=== PATIENT | male | born 1945 | race African-American/Black ===

== ENCOUNTER → 2016-11-29 | Outpatient (CLI) | payer MEDICARE, OTHER ==
[2015-09-12 07:59] VITALS: BP 139/80
[~2016-11-29] MED LIST: DOCU-27 PO; FLUT16SP NS; FLUT1DIS3 IH; FURO20TA3 PO; LIPA1CAP2 PO; LOSA1TAB17 PO; MEGE40TA PO; OMEP40CA5 PO; OXYC30TA PO; OXYC30TA64 PO; PROAIR HFA8.5 GM INH; RANI150T2 PO; TRAM50TA PO
--- NOTE | 2016-11-29 15:34 | KCIC ---
PROCEDURE Two view chest radiograph. HISTORY Short of air. Smoker, cough. TECHNIQUE Two-view chest radiograph was obtained. COMPARISON August 07, 2015. FINDINGS The lungs are clear. There is no pleural effusion. The heart is not enlarged and there is no heart failure. Calcified right paratracheal lymph node is stable. Bony structures are intact. IMPRESSION No acute thoracic findings. Electronically signed by: Adolfo Pleitez MD (Nov 29, 2016 15:33:10)
--- NOTE | 2016-11-29 15:36 | KCIC ---
PROCEDURE CT head without contrast HISTORY Headaches for 2-[address] imaging was performed of the head. Exposure: One or more of the following individualized dose reduction techniques were utilized for this exam: 1. Automated exposure control. 2. Adjustment of the mA and/or kV according to patient size. 3. Use of iterative reconstruction technique. COMPARISON April 22, 2014 FINDINGS There is no intra-axial mass effect, midline shift, extra-axial fluid collection. No acute intracranial hemorrhage is identified. Alegria-white differentiation of the major vascular territories is preserved. Ventricular size is stable, within normal limits given mild generalized supratentorial involutional change. No acute calvarial abnormality is identified. Mastoid air cells are aerated. There is again some pneumatization of the petrous apices bilaterally. Paranasal sinuses are mostly aerated, mucous retention cyst of the lateral left maxillary sinus 1.1 centimeter. IMPRESSION No acute intracranial abnormality is identified. Electronically signed by: Hany Parker MD (Nov 29, 2016 15:34:16)
== END | disposition home or self-care (01) ==
LOC: KCIC CT 14:19
PROVIDERS: ATTEND Internal Medicine
DX: R06.02 Shortness of breath (principal); R05 Cough; F17.200 Nicotine dependence, unspecified, uncomplicated; R51 Headache
CPT/HCPCS: 70450; 71020

== ENCOUNTER → 2018-07-07 | Day surgery (SDC) | payer OTHER ==
[~2018-07-07] MED LIST changes: +CLOP75TA PO; +DOCU-109 PO; -DOCU-27 PO; +HYDROmorphone 2 MG/ML VIAL IV PRN; +IV RINGERS,LACTATED 1000ML 1,000 ML IV SCH; +LIDOCAINE 1% PF 2 ML VIAL. ID PRN; -LOSA1TAB17 PO; +LOSA1TAB22 PO; +MORPHINE SULFATE 2 MG/ML VIAL. IV PRN; +ONDANSETRON PF 4 MG/2 ML VIAL. IV PRN; +OXYC10TA57 PO; +PENI500T PO; +PROCHLORPERAZINE 10 MG/2 ML VIAL. IV PRN; +PROPOFOL 40 ML IV ONE; +fentaNYL PF VIAL 100 MCG/2 ML VIAL IV PRN
--- NOTE | 2018-07-07 09:45 | PDOC1 ---
HISTORY & PHYSICAL H&P Shilpi Rascon Jr 1945 06/10/2018 10:10 AM 09/29 [place] [facility] PATIENTS COM[facility] FIRST [address] [place] [address]. [phone] Patient: Shilpi Rascon Jr Date of : 1945 Date: 06/10/2018 10:10 AM Visit Type: Consult This 72 year old male presents for H/o colorectal polyp. History of Present Illness: 1. H/o colorectal polyp Prior screening: colonoscopy. Risk Factors: h/o colon polyp. Pertinent negatives include abdominal pain, change in bowel habits, change in stool caliber, constipation, decreased appetite, diarrhea, melena, nausea, rectal bleeding, vomiting, weight gain and weight loss. Additional information: No family history of colon cancer, No family history of Crohn's/colitis, No NSAID/ ASA use and last colonoscopy 3 yrs ago and had adenomatous polyp removed. INTAKE COMMENTS: Intake Comments: patient states he is here for a colonoscopy PROBLEM LIST: Problem Description Onset Date Chronic Clinical Status Notes Eczema 01/30/2015 COPD (chronic obstructive pulmonary disease) 01/30/2015 HTN (hypertension) 01/30/2015 Back pain 01/30/2015 Trochanteric bursitis of right hip 02/21/2016 PAST MEDICAL/SURGICAL HISTORY (Detailed) Disease/disorder Onset Date Management Date Comments Laminectomy 2009 COPD Degenerative Disc Disease eczema medications Hypertension Osteoarthritis Family History (Detailed) Relationship Family Member Name Age at Condition Onset Age Cause of Family history of Eczema N Family history of Hypertension N Family history of Coronary artery disease N Mother Hypertension N Social History: (Detailed) The patient is right-handed. Preferred language is Cameroonian. 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 MARITAL STATUS/FAMILY/SOCIAL SUPPORT Currently single. Tobacco use status: Occasional cigarette smoker. Smoking status: Unknown if ever smoked. TOBACCO/VAPING EXPOSURE There is passive smoke exposure. ALCOHOL There is a history of alcohol use. Type: Beer and wine. 3 beers consumed 2 to 3 times a week. Last alcoholic drink was yesterday. CAFFEINE The patient uses caffeine: coffee - 4 cups a day. HOME ENVIRONMENT/SAFETY The home has smoke detectors. No carbon monoxide detector at home. Uses seat belts. EXPERIENCE Patient has no experience. Medications (active prior to today) Medication Name Sig Description Start Date Stop Date Refilled Rx Elsewhere Maxalt 10 mg tablet take 1 tablet by oral route once, may repeat at 2 hour intervals; do not exceed 30 mg in 24 hours 11/15/2016 N Centrum Silver 0.4 mg-300 mcg-250 mcg tablet 1 po q daily 12/23/2016 N oxycodone 10 mg tablet take 1 tablet by oral route every 6 hours PRN for pain not controlled by tramadol 09/19/2017 06/10/2018 09/19/2017 N tramadol 50 mg tablet take 2 tablet by oral route every 6 hours as needed 09/1906/10/2018 09/19/2017 N MEGESTROL 40 MG TABLET TAKE [2] TABLETS EVERY DAY 01/08/2018 01/08/2018 N CLOBETASOL PROP 0.05% CR APPLY TO AFFECTED AREAS TWICE A DAY. 02/19/20182017 N PLAVIX 75 MG TABLET TAKE [1] TABLET BY MOUTH ONCE DAILY 03/03/2018 06/10/2018 N LIPITOR 10 MG TABLET TAKE [1] TABLET BY MOUTH ONCE DAILY 03/04/2018 06/10/2018 06/10/2018 N Viagra 100 mg tablet take 1 tablet by oral route every day as needed approximately 1 hour before sexual activity 03/10/2018 N LOSARTAN-HCTZ 100-25 MG TAB TAKE ONE TABLET BY MOUTH EVERY DAY 04/03/2018201706/10/2018 N triamcinolone acetonide 0.1 % topical cream apply by topical route 2 times every day a thin layer to the affected area(s) 05/28/2018 05/28/2018 N fluticasone 50 mcg/actuation nasal spray,suspension spray 1 spray by intranasal route 2 times every day in each nostril 05/28/2018 05/28/2018 N omeprazole 40 mg capsule,delayed release TAKE ONE CAPSULE BY MOUTH EVERY DAY 06/10/2018 06/10/2018 N ProAir HFA 90 mcg/actuation aerosol inhaler inhale 2 puff by inhalation route every 4 hours as needed 05/28/2018 05/28/2018 N Advair Diskus 250 mcg-50 mcg/dose powder for inhalation INHALE 1 PUFF TWICE A DAY. RINSE MOUTH AFTER USE. 05/28/2018 05/28/2018 N Medication Reconciliation Medications reconciled today. Medication Reviewed Adherence Medication Name Sig Desc Elsewhere Status taking as directed Maxalt 10 mg tablet take 1 tablet by oral route once, may repeat at 2 hour intervals; do not exceed 30 mg in 24 hours N Verified taking as directed Centrum Silver 0.4 mg-300 mcg-250 mcg tablet 1 po q daily N Verified taking as directed oxycodone 10 mg tablet take 1 tablet by oral route every 6 hours PRN for pain not controlled by tramadol N Verified taking as directed tramadol 50 mg tablet take 2 tablet by oral route every 6 hours as needed N Verified taking as directed MEGESTROL 40 MG TABLET TAKE [2] TABLETS EVERY DAY N Verified taking as directed CLOBETASOL PROP 0.05% CR APPLY TO AFFECTED AREAS TWICE A DAY. N Verified taking as directed LIPITOR 10 MG TABLET TAKE [1] TABLET BY MOUTH ONCE DAILY N Verified taking as directed PLAVIX 75 MG TABLET TAKE [1] TABLET BY MOUTH ONCE DAILY N Verified taking as directed LOSARTAN-HCTZ 100-25 MG TAB TAKE ONE TABLET BY MOUTH EVERY DAY N Verified taking as directed Viagra 100 mg tablet take 1 tablet by oral route every day as needed approximately 1 hour before sexual activity N Verified taking as directed triamcinolone acetonide 0.1 % topical cream apply by topical route 2 times every day a thin layer to the affected area(s) N Verified taking as directed fluticasone 50 mcg/actuation nasal spray,suspension spray 1 spray by intranasal route 2 times every day in each nostril N Verified taking as directed omeprazole 40 mg capsule,delayed release TAKE ONE CAPSULE BY MOUTH EVERY DAY N Verified taking as directed ProAir HFA 90 mcg/actuation aerosol inhaler inhale 2 puff by inhalation route every 4 hours as needed N Verified taking as directed Advair Diskus 250 mcg-50 mcg/dose powder for inhalation INHALE 1 PUFF TWICE A DAY. RINSE MOUTH AFTER USE. N Verified Medications (Added, Continued or Stopped today) Start Date Medication Directions PRN Status PRN Reason Instruction Stop Date 05/28/2018 Advair Diskus 250 mcg-50 mcg/dose powder for inhalation INHALE 1 PUFF TWICE A DAY. RINSE MOUTH AFTER USE. N 06/10/2018 ammonium lactate 12 % topical cream bid N please deliver 06/10/2018 atorvastatin 10 mg tablet TAKE [1] TABLET BY MOUTH ONCE DAILY N 12/23/2016 Centrum Silver 0.4 mg-300 mcg-250 mcg tablet 1 po q daily N 02/19/2018 CLOBETASOL PROP 0.05% CR APPLY TO AFFECTED AREAS TWICE A DAY. N 05/28/2018 fluticasone 50 mcg/actuation nasal spray,suspension spray 1 spray by intranasal route 2 times every day in each nostril N 06/10/2018 Golytely 236 gram-22.74 gram-6.74 gram-5.86 gram oral solution Take as per the instruction given for colonoscopy. N Please dispense one gallon container. 03/04/2018 LIPITOR 10 MG TABLET TAKE [1] TABLET BY MOUTH ONCE DAILY N 201706/10/2018 losartan 100 mg-hydrochlorothiazide 25 mg tablet TAKE ONE TABLET BY MOUTH EVERY DAY N 04/03/2018 LOSARTAN-HCTZ 100-25 MG TAB TAKE ONE TABLET BY MOUTH EVERY DAY N 11/15/2016 Maxalt 10 mg tablet take 1 tablet by oral route once, may repeat at 2 hour intervals; do not exceed 30 mg in 24 hours N 01/08/2018 MEGESTROL 40 MG TABLET TAKE [2] TABLETS EVERY DAY N 05/28/2018 omeprazole 40 mg capsule,delayed release TAKE ONE CAPSULE BY MOUTH EVERY DAY N 06/10/2018 06/10/2018 omeprazole 40 mg capsule,delayed release TAKE ONE CAPSULE BY MOUTH EVERY DAY N 09/19/2017 oxycodone 10 mg tablet take 1 tablet by oral route every 6 hours PRN for pain not controlled by tramadol N 06/10/2018 03/03/2018 PLAVIX 75 MG TABLET TAKE [1] TABLET BY MOUTH ONCE DAILY N 201706/10/2018 Plavix 75 mg tablet TAKE [1] TABLET BY MOUTH ONCE DAILY N 05/28/2018 ProAir HFA 90 mcg/actuation aerosol inhaler inhale 2 puff by inhalation route every 4 hours as needed N 09/19/2017 tramadol 50 mg tablet take 2 tablet by oral route every 6 hours as needed N 06/10/2018 05/28/2018 triamcinolone acetonide 0.1 % topical cream apply by topical route 2 times every day a thin layer to the affected area(s) N 03/10/2018 Viagra 100 mg tablet take 1 tablet by oral route every day as needed approximately 1 hour before sexual activity N Allergies: Ingredient Reaction (Severity) Medication Name Comment NO KNOWN ALLERGIES Review of Systems System Neg/Pos Details Constitutional Negative Chills, Fever, Malaise, Weight gain and Weight loss. ENMT Negative Sore throat. Eyes Negative Double vision. Respiratory Negative Dyspnea and Wheezing. Cardio Negative Chest pain and Irregular heartbeat/palpitations. GI Positive See HPI. GI Negative Abdominal pain, Change in bowel habits, Change in stool caliber, Constipation, Decreased appetite, Diarrhea, Melena, Nausea, See HPI, Rectal bleeding and Vomiting. Negative Dysuria and Hematuria. Endocrine Negative Cold intolerance and Heat intolerance. Psych Negative Anxiety. Integumentary Negative Hives and Rash. MS Negative Joint pain. Artem/Lymph Negative Easy bleeding and Easy bruising. Allergic/Immuno Negative Food allergies. Vital Signs Time BP mm/Hg Pulse /min Resp /min Temp F Ht ft Ht in Ht cm Wt lb Wt kg BMI kg/ m2 BSA m2 O2 Sat% 10:32 AM 130/70 80 16 98.0 6.0 1.00 185.42 182.20 82.645 24.04 2.06 98 Measured By Time Measured by 10:32 AM Darcie Swygert PHYSICAL EXAM: Exam Findings Details Constitutional Normal Well developed. Eyes Normal Conjunctiva - Right: Normal, Left: Normal. Sclera - Right: Normal, Left: Normal. Nasopharynx Normal Lips/teeth/gums - Normal. Neck Exam Normal Inspection - Normal. Thyroid gland - Normal. Respiratory Normal Inspection - Normal. Auscultation - Normal. Cardiovascular Normal Regular rate and rhythm. No murmurs, gallops, or rubs. Abdomen Normal Inspection - Normal. Anterior palpation - No guarding. No abdominal tenderness. No hepatic enlargement. No spleen enlargement. No hernia. No ascites. Skin Normal Inspection - Normal. Extremity Normal No edema. Psychiatric Normal Orientation - Oriented to time, place, person & situation. Appropriate mood and affect. Assessment/Plan # Detail Type Description 1. Assessment History of colon polyps (Z86.010). Patient Plan schedule colonoscopy at [facility] with Golytely preparation. Provider Plan Following items have been discussed with the patient if applicable. __x_Patient was advised about the liquid diet carefully. ___Diabetic medication: Do not take following medication on the preparation day - ___Insulin: Reduce or eliminate your insulin as follows- _x__Blood thinner: Do not take following blood thinner as follows- Plavix for 5 days before the test. __x_Other medication: Continue all other medication on the day of preparation. ___BP medication: Take following BP meds on the day of the procedure at 5:30 AM. with just a sip of water-but do not drink lot of water because this will delay your procedure for anesthesia related issue.- Plan Orders Further diagnostic evaluations ordered today include(s) Colonoscopy , flexible; diagnostic to be performed today. He is to schedule a follow-up visit with Mick Magaña MD upon completion of work-up. Active Patient Care Team Members Name Contact Agency Type Support Role Relationship Active Date Inactive Date Specialty Robin Urbina MD Patient provider PCP Internal Med Document Electronically signed: Mick Magaña MD 06/10/2018 11:59 AM Document generated by: Mick Magaña 06/10/2018 Candido Najera MD, Family Practice; Nicolas Weathers MD Internal Medicine; Robin Urbina MD, Internal Medicine; Geovanna Magaña MD Internal Medicine; Mick Magaña MD, Gastroenterology; Justin Barron MD, Rheumatology, Cheryle Bhatti APRN ------ 07/07/18 Patient seen and examined. No change in H&P. MICK MAGAÑA MD Jul 07, 2018 09:45
[2018-07-07 10:37] VITALS: BP 136/76
== END | disposition home or self-care (01) ==
LOC: ENDOS 09:08
PROVIDERS: ATTEND Internal Medicine Gastroenterology
DX: Z12.11 Encounter for screening for malignant neoplasm of colon (principal); I10 Essential (primary) hypertension; J44.9 Chronic obstructive pulmonary disease, unspecified; M19.90 Unspecified osteoarthritis, unspecified site; Z86.010 Personal history of colon polyps; Z98.890 Other specified postprocedural states; Z82.49 Family history of ischemic heart disease and other diseases of the circulatory system; Z72.89 Other problems related to lifestyle; F17.200 Nicotine dependence, unspecified, uncomplicated; Z79.899 Other long term (current) drug therapy; Z79.01 Long term (current) use of anticoagulants
CPT/HCPCS: 45378; J2704

== ENCOUNTER → 2019-06-30 | Outpatient (CLI) | payer OTHER ==
[2018-07-07 10:37] VITALS: BP 136/76
[~2019-06-30] MED LIST changes: +ALBU2.5V8 INH; +CONTRAST GIVEN. MC PRN; -HYDROmorphone 2 MG/ML VIAL IV PRN; +IOHEXOL 240 MG/ML 50ML VIAL. PO ONE; +IOHEXOL 300 MG/ML 100ML VIAL. IV ONE; -IV RINGERS,LACTATED 1000ML 1,000 ML IV SCH; -LIDOCAINE 1% PF 2 ML VIAL. ID PRN; -MORPHINE SULFATE 2 MG/ML VIAL. IV PRN; +OMEP40CA45 PO; -OMEP40CA5 PO; -ONDANSETRON PF 4 MG/2 ML VIAL. IV PRN; -OXYC30TA PO; +OXYC30TA3 PO; -PROAIR HFA8.5 GM INH; -PROCHLORPERAZINE 10 MG/2 ML VIAL. IV PRN; -PROPOFOL 40 ML IV ONE; -fentaNYL PF VIAL 100 MCG/2 ML VIAL IV PRN
--- NOTE | 2019-06-30 18:11 | RAD ---
Examination: CT ABD PELV W/ORAL IV CONTRAST, CT CHEST WO CONTRAST History: Abnormal weight loss. Smoking history. Comparison/Correlation: 10/19/2015 CTA of the abdomen and pelvis with runoff Findings: Axial images of the chest were obtained without IV contrast. Axial images of the abdomen, and pelvis were obtained following oral contrast and IV contrast. Images of the abdomen and pelvis were acquired during the arterial phase. Sagittal and coronal reformatted images were provided. Blebs are noted involving the upper lung gamboa. Subtle centrilobular emphysematous volume of the lung gamboa noted otherwise as well. No suspicious infiltrate. Subtle bronchial wall thickening of the lower lobe bronchi noted. Pulmonary nodule at the anterior right breast present measuring up to 0.8 cm is stable compared to the previous CT exam. Mild bronchial wall thickening is present. Minimal mucous at the dependent aspect of the distal right bronchus is noted. Large calcified right paratracheal lymph node is present. No suspicious enlarged thoracic lymph nodes. Marked calcification involves the left anterior descending coronary artery proximally. No pleural or pericardial effusion. Small hiatal hernia is present. Liver is unremarkable although evaluation may be limited as images are only obtained in the arterial phase. Calcified granulomas involve the spleen. Gallbladder fossa is unremarkable. Adrenal glands are unremarkable. Kidneys are unremarkable. Gastric wall is diffusely thickened but this may relate to contraction. It is similar to the prior exam. No surrounding lymph nodes or focal mass identified. No enlarged abdominal or pelvic lymph nodes. Celiac and superior mesenteric arteries are unremarkable. 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 Infrarenal aortic aneurysm is present measuring up to 2.8 cm diameter with thrombus partially seen. Significant calcific involvement of the abdominal aorta and iliac arteries is identified. The right and left internal iliac arteries do not fully opacified. Marked calcific involvement noted. Reconstitution more distally is evident. Appendix is normal. No extraluminal gas. No bowel obstruction. Urinary bladder is probably unremarkable although evaluation is limited due to streak artifact resulting hydronephrosis and prosthesis. Moderate L3-4 and L4-5 disc space narrowing is present with vacuum phenomenon. Spinal canal stenosis is evident at these levels. Transitional L5 vertebra is present. Impression: Diffuse atherosclerotic calcific involvement of the abdominal aorta and iliac arteries. 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 These findings appear progressed since the prior exam. Small infrarenal abdominal aortic aneurysm. No suspicious mass lesions, inflammatory processes, or enlarged lymph nodes. PQRS Compliance Statement: One or more of the following individualized dose reduction techniques were utilized for this examination: 1. Automated exposure control 2. Adjustment of the mA and/or kV according to patient size 3. Use of iterative reconstruction technique Electronically signed by: Luis Carlos MD (06/30/2019 6:08 PM) [facility]
== END | disposition home or self-care (01) ==
LOC: CT 10:02
PROVIDERS: ATTEND Internal Medicine
DX: I70.8 Atherosclerosis of other arteries (principal); I70.0 Atherosclerosis of aorta; I25.10 Atherosclerotic heart disease of native coronary artery without angina pectoris; I71.4 Abdominal aortic aneurysm, without rupture; R63.4 Abnormal weight loss; N13.30 Unspecified hydronephrosis; M48.061 Spinal stenosis, lumbar region without neurogenic claudication; I74.5 Embolism and thrombosis of iliac artery; I74.8 Embolism and thrombosis of other arteries; F17.200 Nicotine dependence, unspecified, uncomplicated
CPT/HCPCS: 71250; 74177; Q9966; Q9967